=== PATIENT | female | born 1960 | race Caucasian/White ===

== ENCOUNTER 2022-10-03 11:33 | Outpatient (CLI) | payer OTHER, SELFPAY ==
--- OUTSIDE RECORDS SUMMARY | 2022-10-03 11:41 | XMS_ITS | Continuity of Care Document ---
Author Name [facility] Care Team Providers Care Side Guider Name Role Phone [facility] Unavailable Unavailable Allergies, Adverse Reactions, Alerts Substance Category Reaction Severity Reaction type Status Date Reported Comments Source thimerosal topical Drug Allergy Active 3 [facility] Family Medicine 1,[facility] Medicine 6 traMADol Drug Allergy Active 3 [facility] Family Medicine 1,[facility] Family Medicine 6
== END 2022-10-03 11:34 | disposition home or self-care (01) ==
PROVIDERS: PCP Physician Assistant Medical; Visit Provider Family Medicine
DX: Z00.00 Encounter for general adult medical examination without abnormal findings (principal); E03.9 Hypothyroidism, unspecified; I10 Essential (primary) hypertension; Z13.6 Encounter for screening for cardiovascular disorders; Z11.59 Encounter for screening for other viral diseases
CPT/HCPCS: 80053; 80061; 84443; 86803

== ENCOUNTER 2023-04-05 09:58 | Outpatient (CLI) | payer OTHER, SELFPAY ==
--- OUTSIDE RECORDS SUMMARY | 2023-04-05 10:02 | XMS_ITS | Continuity of Care Document ---
Author Name [facility] Care Team Providers Care Shipping Lead Name Role Phone [facility] Unavailable Unavailable Allergies, Adverse Reactions, Alerts Substance Category Reaction Severity Reaction type Status Date Reported Comments Source thimerosal topical Drug Allergy Active 3 [facility] Family Medicine 1,[facility]patient [facility] Medicine 6 traMADol Drug Allergy Active 3 [facility] Family Medicine 1,[facility]patient [facility] Family Medicine 6
--- NOTE | 2023-04-05 10:15 | CRLHL7_ITS ---
For Patients: As a result of the Century Cures Act, medical imaging exams and procedure reports are released immediately into your electronic medical record. You may view this report before your referring provider. If you have questions, please contact your health care provider. BILATERAL SCREENING MAMMOGRAM WITH COMPUTER-AIDED DETECTION TECHNIQUE: CC and MLO views were obtained. These mammographic images have been obtained using full-field digital technique. These mammographic images were interpreted with the benefit of computer-aided detection. COMPARISON FILM: 01/23/20, 08/02/18, 06/30/17. FINDINGS: There are scattered areas of fibroglandular density IMPRESSION: There is no radiographic evidence for malignancy. ASSESSMENT: BI-RADS Category 1: Negative RECOMMENDATION: Routine screening mammogram in 1 year. A lay language report of this examination will be provided to the patient. Robert Mujica M.D. Diagnostic Radiologist [email or web address] KUMAR/Dictated by: Robert Mujica MD @ 04/05/2023 11:21:00 AM (Electronically Signed)
== END 2023-04-05 09:59 | disposition home or self-care (01) ==
LOC: MAMMO 10:00
PROVIDERS: PCP Family Medicine; Visit Provider Family Medicine
DX: Z12.31 Encounter for screening mammogram for malignant neoplasm of breast (principal)
CPT/HCPCS: 77067

== ENCOUNTER 2023-08-25 12:06 | Outpatient (CLI) | payer MEDICARE, SELFPAY | END 2023-08-25 12:07 | disposition home or self-care (01) | PROVIDERS: PCP Family Medicine; Visit Provider Family Medicine | DX: E78.2 Mixed hyperlipidemia (principal); E03.9 Hypothyroidism, unspecified; I10 Essential (primary) hypertension | CPT/HCPCS: 80053; 80061; 82043; 82570; 84443 ==

== ENCOUNTER 2023-09-27 13:45 | Outpatient (CLI) | payer MEDICARE, SELFPAY ==
--- NOTE | 2023-09-27 14:00 | US_ITS ---
Patient: JOAQUIN DOMINGUEZ Facility:?[facility] Patient ID:?[id number] Site Patient ID:?[id number]. Site :?[id number] Study:?US-Abdomen Aorta-09/27/2023 3:24:43 PM Ordering Physician:Jaylin Jennings Final Report: ULTRASOUND ABDOMINAL AORTA INDICATION: Screening, past smoker. TECHNIQUE: Grayscale and color Doppler ultrasound examination of the abdominal aorta and common iliac arteries was performed. COMPARISON: None available. FINDINGS: (AP, width cm) Proximal AO: 1.91 x 1.8 cm. Mid AO: 2.1 x 1.9 cm. Distal AO: 1.6 x 1.5 cm. Right NATE: 0.8 x 0.9 cm. Left NATE: 1.0 x 0.9 cm. IMPRESSION: No sonographic evidence for abdominal aortic aneurysm. River Richardson M.D. Interventional Radiology/Diagnostic Radiology (IR/DR) [email or web address] CATHY/seema D& Transcribed: 9:54 p.m. KUMAR/Dictated by: River Richardson MD @ 09/27/2023 9:04:00 PM Signed by:?River Richardson MD @09/28/2023 7:57:46 AM (Electronic Signature)
--- NOTE | 2023-09-27 15:00 | XR_ITS ---
Patient: JOAQUIN DOMINGUEZ Facility:?[facility] Patient ID:?[id number] Site Patient ID:?[id number]. Site :?[id number] Study:?DEXA-Bone Density DEXA - SPINE/HIPS-09/27/2023 2:44:25 PM Ordering Physician:JOSH Final Report: DXA BONE MINERAL DENSITY STUDY Reason for exam: Osteopenia. Current height (in): 63.5. Weight (lb): 140. Menopause age: 53. Ethnicity: White. 1. Have you had a previous hip or vertebral fracture? No. 2. Have you had any fractures during your adult life which did not result from significant trauma (e.g., auto accident)? No. 3. Did either of your parents have a hip fracture? No. 4. Do you smoke? No. 5. Have you ever taken Glucocorticoids? No. 6. Do you have rheumatoid arthritis? No. 7. Do you have secondary osteoporosis? No. 8. Do you drink 3 or more alcoholic drinks per day? No. 9. Are you being treated for osteoporosis? No. 10. Have you ever taken any of the following medications: Actonel, Evista, Fosamax, Miacalcin, Reclast, Boniva, Forteo, HRT (i.e. estrogen/hormone therapy), Protelos, Prolia, Vitamin D, Calcium, other ? please specify. ANSWER: Yes, HRT (i.e. estrogen/hormone therapy), Vitamin D, and Calcium. 11. Do you have any of the following medical conditions: Anorexia or bulimia, asthma or emphysema, end stage renal disease, hyperparathyroidism, any seizure disorders, cancer, inflammatory bowel diseases, hysterectomy, other ? please specify. ANSWER: Yes, Cancer and hysterectomy. 12. What was your maximum height (inches)? 64. 13. Do you perform weight bearing exercise regularly? No. 14. Do you regularly consume dairy products? No. 15. Do you drink caffeinated beverages? Yes. 16. At what age did your period start? 10. 17. Are you premenopausal? No. 18. How many full term pregnancies have you had? 1. 19. Have you ever missed your period for more than 6 months in a row (not including or menopause)? Not provided. TECHNIQUE: Bone mineral density study was performed using the [employer]. FINDINGS: The results of the study expressed as bone mineral density (BMD) are as follows: Lumbar spine L1 to L4: BMD: 0.900 g/cm2. T-score: -1.3. Z-score: 0.4. Neck Left: BMD: 0.728 g/cm2. T-score: -1.1 . Z-score: 0.4. Right: BMD: 0.616 g/cm2. T-score: -2.1. Z-score: -0.6. Total Left: BMD: 0.913 g/cm2. T-score: -0.2 . Z-score: 1.0. Right: BMD: 0.834 g/cm2. T-score: -0.9 . Z-score: 0.3. IMPRESSION: Osteopenia. *Comparison exams done prior to 12/2019 were performed on different unit, [employer]. COMPARISON: Compared with scan of 08/07/2019, the bone mineral density has decreased by 7.4 percent at the spine and increased by 3.7 percent at the hip. FRAX 10-year Fracture Risk Major Osteoporotic Fracture: 11 percent Hip Fracture: 1.7 percent Reported Risk Factors: [place] () Neck BMD=0.616, BMI=24.4 Susi Harrison M.D. Body/Interventional Radiologist [email or web address] RADHA/alysha D& Transcribed: 7:05 p.m. SP/Dictated by: Susi Harrison MD @ 09/28/2023 10:30:00 AM SP/Dictated by: Susi Harrison MD @ 09/28/2023 10:30:00 AM Signed by:?Susi Harrison MD @09/29/2023 10:10:52 AM (Electronic Signature)
== END 2023-09-27 13:46 | disposition home or self-care (01) ==
LOC: US 13:45
PROVIDERS: PCP Family Medicine; Visit Provider Family Medicine
DX: Z13.6 Encounter for screening for cardiovascular disorders (principal); I10 Essential (primary) hypertension; Z87.891 Personal history of nicotine dependence; Z13.820 Encounter for screening for osteoporosis; M85.88 Other specified disorders of bone density and structure, other site
CPT/HCPCS: 76706; 77080

== ENCOUNTER 2024-04-08 10:02 | Outpatient (CLI) | payer MEDICARE, SELFPAY ==
--- OUTSIDE RECORDS SUMMARY | 2024-04-08 10:04 | XMS_ITS | Clinical Summary ---
Author Organization [facility] [employer] [facility] Address [place], [place] [address] Care Team Providers Care Appeals Writer Name Role Phone Roya Kim PA-C Primary Care Provider +1- [phone] Social History Tobacco Use Types Packs/Day Years Used Date Smoking Tobacco: Never Assessed Sex and Gender Information Value Date Recorded Sex Assigned at Not on file Gender Identity Not on file Sexual Orientation Not on file Plan of Treatment Not on file Care Teams Appeals Writer Relationship Specialty Start Date End Date Julio Roya Ben, MEGAN PCP - General Physician Center Receptionist 12/11/13
--- NOTE | 2024-04-08 10:15 | CRLHL7_ITS ---
For Patients: As a result of the Century Cures Act, medical imaging exams and procedure reports are released immediately into your electronic medical record. You may view this report before your referring provider. If you have questions, please contact your health care provider. BILATERAL SCREENING MAMMOGRAM WITH COMPUTER-AIDED DETECTION AND TOMOSYNTHESIS TECHNIQUE: CC and MLO views were obtained. These mammographic images have been obtained using full-field digital technique. These mammographic images were interpreted with the benefit of computer-aided detection. Breast tomosynthesis was used in this interpretation. COMPARISON FILM: 04/05/23, 01/23/20, 08/02/18. FINDINGS: There are scattered areas of fibroglandular density. IMPRESSION: There is no radiographic evidence for malignancy. ASSESSMENT: BI-RADS Category 1: Negative RECOMMENDATION: Routine screening mammogram in 1 year. A lay language report of this examination will be provided to the patient. ROBERT GARCES M.D. Diagnostic Radiologist [email or web address] Transcribed: 12:[address]/Dictated by: Robert Garces MD @ 04/08/2024 11:22:00 AM (Electronically Signed)
== END 2024-04-08 10:03 | disposition home or self-care (01) ==
LOC: MAMMO 10:03
PROVIDERS: PCP Family Medicine; Visit Provider Family Medicine
DX: Z12.31 Encounter for screening mammogram for malignant neoplasm of breast (principal)
CPT/HCPCS: 77063; 77067

== ENCOUNTER 2024-05-06 01:00 | Emergency (ER) | payer MEDICARE, SELFPAY ==
[2024-05-06] VITALS (16 sets, daily range): BP systolic 122–184; BP diastolic 69–94; PULSE 60–73; RESP 16; TEMP 36.7; O2SAT 96–100; BMI 23.9
--- NOTE | 2024-05-06 01:21 | ED.GENADULT ---
HPI - General Adult General Chief complaint: Unspecified Complaint, Adult Stated complaint: difficulty remembering Time Seen by Provider: 05/06/24 01:02 History of Present Illness HPI narrative: went to bed at 1030 and had evening activities with . states at 2315 she sat on end of bed and has no memory of the last few hours. no other deficits noted on triage. pt states hx of this one time before and was told TIA. denies CP or SOB. 63-year-old woman presenting to the emergency department with abrupt onset of confusion. She had Monday evening activities with her and they were preparing for bed when she was just saying how she was confused. Information is obtained mostly from . Walking about the house apparently noted things to be unfamiliar. Items on the table that had been present for days or weeks were also a not remembered. Dot having any loss of sensation or headache or weakness. She was feeling well prior to this event. Apparently had a similar episode in 2018 or 2019 and this was thought to be a TIA. Further questioning later reveals a no imaging was done at that time. Does not take any anticoagulation/aspirin. Underlying history of hypertension and hypothyroid. Related Data Home Medications ?Medication ?Instructions ?Recorded ?Confirmed estriol cream vaginal .2 x week PRN 12/04/23 Previous Rx's ?Medication ?Instructions ?Recorded cyclobenzaprine 5 mg tablet 5 - 10 mg (1 - 2 x 5 mg) PO TID 10/03/22 PRN muscle spasm #30 tabs conjugated estrogens 0.625 mg/gram 1 applic vaginal 2XW dyspareunia 08/25/23 vaginal cream (Premarin) #30 grams fluticasone propionate 50 1 spray intranasal QDAY PRN 08/25/23 mcg/actuation nasal allergy symptoms #16 grams spray,suspension (Allergy Relief (fluticasone)) hydrochlorothiazide 12.5 mg tablet 12.5 mg PO DAILY #90 tabs 08/25/23 levothyroxine 50 mcg tablet 50 mcg PO QDAY #90 tabs 08/25/23 spironolactone 25 mg tablet 25 mg PO DAILY #90 tabs 08/25/23 triamcinolone acetonide 0.1 % 1 applic dental 3XD PRN mouth 08/25/23 dental paste irritation #5 grams simvastatin 20 mg tablet 20 mg PO QHS #90 tabs 03/11/24 Allergies Allergy/AdvReac Type Severity Reaction Status Date / Time thimerosal Allergy Intermediate Swelling Verified 09/21/23 12:23 of the Eye tramadol Allergy Mild Nausea Verified 09/21/23 12:23 Review of Systems Status of ROS: Reports: 6 or more systems reviewed and unremarkable except as noted in History and below [facility] Medical History BCC (basal cell carcinoma of skin) ?C44.91 - Basal cell carcinoma of skin, unspecified (ICD-10) Non-healing skin lesion ?L98.9 - Disorder of the skin and subcutaneous tissue, unspecified (ICD-10) Surgical History Hx of LASIK ?Z98.890 - Other specified postprocedural states (ICD-10) History of repair of right hip joint ?Z98.890 - Other specified postprocedural states (ICD-10) History of bunionectomy ?Z98.890 - Other specified postprocedural states (ICD-10) History of hysterectomy ?Z90.710 - Acquired absence of both cervix and uterus (ICD-10) Family History Father Abdominal aortic aneurysm COPD (chronic obstructive pulmonary disease) Coronary artery disease Skin cancer Mother High blood pressure Thyroid disease Other Arthritis, rheumatoid Social History Narrative: Former smoker Does not use illicit drugs Social alcohol use Smoking Status: Former smoker How often do you have a drink containing alcohol: never AUDIT-C Alcohol total score: 0 Little interest or pleasure in doing things: not at all Feeling down, depressed, or hopeless: not at all Exam Narrative: Exam Narrative: Very pleasant. Mood and affect are congruent. NAD. Head is atraumatic. Cranial nerves 2-12 intact. She is speaking fluidly. No sensory or motor deficits apparent. Good strength throughout. Slight tremor in her hands which she says is associated with being cold at the moment. More accurate point point. Does demonstrate some difficulty with recall of these events this evening. Does pretty well with short-term recall here in testing but neglects 1 object requested to remember. Heart in regular rate and rhythm without murmur rub or gallop. Lungs are clear. Const: Vital Signs, click to edit/add: Vital Signs - 24 hr 05/06/24 01:09 05/06/24 01:22 05/06/24 01:41 Temperature 98.0 F Pulse Rate Pulse Rate [Pulse Oximeter] 71 Respiratory Rate 16 Blood Pressure 145/92 H 138/83 Blood Pressure [Ri ght Upper Arm] 184/94 H Pulse Oximetry 98 Oxygen Delivery Me thod Room Air 05/06/24 02:01 05/06/24 02:20 05/06/24 04:01 Temperature Pulse Rate 73 72 Pulse Rate [Pulse Oximeter] Respiratory Rate 16 Blood Pressure 147/89 H 127/77 Blood Pressure [Ri ght Upper Arm] Pulse Oximetry 100 96 Oxygen Delivery Me thod 05/06/24 04:02 05/06/24 06:03 05/06/24 06:06 Temperature Pulse Rate 64 63 60 Pulse Rate [Pulse Oximeter] Respiratory Rate 16 Blood Pressure 134/69 Blood Pressure [Ri ght Upper Arm] Pulse Oximetry 97 98 98 Oxygen Delivery Me thod 05/06/24 06:30 05/06/24 07:00 05/06/24 07:30 Temperature Pulse Rate 61 64 62 Pulse Rate [Pulse Oximeter] Respiratory Rate Blood Pressure Blood Pressure [Ri ght Upper Arm] Pulse Oximetry 97 96 96 Oxygen Delivery Me thod 05/06/24 07:46 Temperature Pulse Rate 61 Pulse Rate [Pulse Oximeter] Respiratory Rate Blood Pressure 122/73 Blood Pressure [Ri ght Upper Arm] Pulse Oximetry 99 Oxygen Delivery Me thod Documenting provider has reviewed patient's vital signs: yes Course Vital Signs Vital signs: Initial Vital Signs Temperature 98.0 F 05/06/24 01:09 Temperature Source Temporal Artery Scan 05/06/24 01:09 Pulse Rate 71 05/06/24 01:09 Respiratory Rate 16 05/06/24 01:09 Blood Pressure 184/94 H 05/06/24 01:09 Blood Pressure Mean 124 H 05/06/24 01:09 Blood Pressure Position Sitting 05/06/24 01:09 Pulse Oximetry 98 05/06/24 01:09 Oxygen Delivery Method Room Air 05/06/24 01:09 Vital Signs Temperature 98.0 F 05/06/24 01:09 Pulse Rate 71 05/06/24 01:09 Respiratory Rate 16 05/06/24 01:09 Blood Pressure 184/94 H 05/06/24 01:09 Pulse Oximetry 98 05/06/24 01:09 Oxygen Delivery Method Room Air 05/06/24 01:09 Temperature 98.0 F 05/06/24 01:09 Pulse Rate 61 05/06/24 07:46 Respiratory Rate 16 05/06/24 06:03 Blood Pressure 122/73 05/06/24 07:46 Pulse Oximetry 99 05/06/24 07:46 Oxygen Delivery Method Room Air 05/06/24 01:09 Medical Decision Making MDM Narrative Medical decision making narrative: I think would has occurred here is transient global amnesia. I suspect no further evaluation will be necessary. Some memory is already coming back a little bit. I discussed this diagnosis with them. Sounds like that may have been what she experienced in 2018 or 2019 as well. Has been quite concerned though about these events. I mentioned that I would discuss her case with neurology/stroke neuro on-call. Conversation with Stroke Neuro -- admittedly could defer any evaluation but would recommend since no imaging was done last time that do something here today. Concern would be about insult to posterior circulation. Karma and her have concerns of potential contrast allergy so would prefer not to do CT/CTA. Other option would be an MRI of the brain but will then sleep here in the emergency department until slot available in the morning. Further treatment pending these results or any further developments overnight. Anticipate hand off at change of shift pending MRI results Medical Records Medical records reviewed: Yes I reviewed the patient's medical records Discharge Plan Discharge Clinical Impression: Transient global amnesia Additional Instructions: I would anticipate your recall continuing to improve. No further recommendations at this time. Pleasure to meet you. Prescriptions: No Action cyclobenzaprine 5 mg tablet 5 - 10 mg PO TID PRN (Reason: muscle spasm) Qty: 30 3RF Premarin 0.625 mg/gram cream 1 applic vaginal 2XW Qty: 30 12RF fluticasone propionate [Allergy Relief (fluticasone)] 50 mcg/actuation spray,suspension 1 spray intranasal QDAY PRN (Reason: allergy symptoms) Qty: 16 12RF Rx Instructions: administer into each nostril hydrochlorothiazide 12.5 mg tablet 12.5 mg PO DAILY Qty: 90 3RF levothyroxine 50 mcg tablet 50 mcg PO QDAY Qty: 90 3RF spironolactone 25 mg tablet 25 mg PO DAILY Qty: 90 3RF triamcinolone acetonide 0.1 % paste 1 applic dental 3XD PRN (Reason: mouth irritation) Qty: 5 3RF estriol cream cream vaginal .2 x week PRN Rx Instructions: 1mg/gm - apply one gram vaginally every night for two weeks, then use twice weekly as needed thereafter simvastatin 20 mg tablet 20 mg PO QHS Qty: 90 1RF Follow Up/Referrals: Jaylin Herring MD [Primary Care Provider] -
--- OUTSIDE RECORDS SUMMARY | 2024-05-06 01:58 | XMS_ITS | Clinical Summary ---
Author Organization [facility] [employer] [facility] & [facility] Address [place], [place] [address] Care Team Providers Care Corduroy Cutting Supervisor Name Role Phone Roya Kim PA-C Primary Care Provider +1- [phone] Social History Tobacco Use Types Packs/Day Years Used Date Smoking Tobacco: Never Assessed Sex and Gender Information Value Date Recorded Sex Assigned at Not on file Gender Identity Not on file Sexual Orientation Not on file Plan of Treatment Not on file Care Teams Corduroy Cutting Supervisor Relationship Specialty Start Date End Date Julio October Ben, MEGAN PCP - General Physician Ham Sawyer 12/11/13
--- NOTE | 2024-05-06 07:00 | CRLHL7_ITS ---
For Patients: As a result of the Century Cures Act, medical imaging exams and procedure reports are released immediately into your electronic medical record. You may view this report before your referring provider. If you have questions, please contact your health care provider. Indication: Difficulty remembering last night from 11 p.m. through 11:30 p.m. Technique: Multiplanar, multisequence MRI of the brain obtained without contrast. Comparison: MRI brain 11/06/2017 Findings: The ventricles and cortical sulci are mildly prominent, compatible with generalized cerebral volume loss. No midline shift or mass effect. No acute intracranial hemorrhage or abnormal extra-axial fluid collection. No evidence of acute/subacute ischemia. Scattered FLAIR hyperintense foci throughout the supratentorial white matter typical of mild chronic microangiopathy. Solitary chronic microhemorrhage in the left parietal white matter. Midline structures are unremarkable. The major expected intracranial flow voids are visualized. Included bone marrow signal is unremarkable. No suspicious findings in the regional soft tissues. Minor mucosal thickening along the inferior maxillary sinuses. No mastoid effusion. Unremarkable orbits. Impression: 1. No evidence of acute intracranial abnormality. 2. Mild generalized cerebral volume loss and mild chronic microangiopathy changes similar to 2018. Dictated by Elle Montgomery MD @ 05/06/2024 9:03:43 AM (Electronically Signed)
--- NOTE | 2024-05-06 09:18 | ED.NURSE ---
Pt left without discharge instructions
== END 2024-05-06 09:20 | disposition home or self-care (01) ==
PROVIDERS: Emergency Provider Family Medicine; PCP Family Medicine
DX: G45.4 Transient global amnesia (principal)
CPT/HCPCS: 70551; 99284

== ENCOUNTER 2024-09-12 09:24 | Outpatient (CLI) | payer MEDICARE, SELFPAY | END 2024-09-12 09:25 | disposition home or self-care (01) | PROVIDERS: PCP Family Medicine; Visit Provider Family Medicine | DX: E03.9 Hypothyroidism, unspecified (principal); I10 Essential (primary) hypertension; E78.5 Hyperlipidemia, unspecified | CPT/HCPCS: 80053; 80061; 82043; 82570; 84439; 84443 ==

== ENCOUNTER 2025-04-09 14:46 | Outpatient (CLI) | payer MEDICARE, SELFPAY ==
--- NOTE | 2025-04-09 15:00 | CRLHL7_ITS ---
For Patients: As a result of the Century Cures Act, medical imaging exams and procedure reports are released immediately into your electronic medical record. You may view this report before your referring provider. If you have questions, please contact your health care provider. INDICATION: BILATERAL SCREENING MAMMOGRAM, ASYMPTOMATIC 64 Y/O FEMALE COMPARISON: 04/08/2024, 04/05/2023, 01/23/2020 TECHNIQUE: Digital mammogram in CC and MLO projections including computer-aided detection (CAD) and tomosynthesis. BREAST COMPOSITION: There are scattered areas of fibroglandular density. FINDINGS: No suspicious findings. ASSESSMENT: BI-RADS 1 Negative RECOMMENDATION: Annual screening mammogram. A lay language report of this examination will be provided to the patient. Dictated by: Robert Mujica MD @ 04/10/2025 09:22:15 (Electronically Signed)
== END 2025-04-09 14:47 | disposition home or self-care (01) ==
LOC: MAMMO 14:46
PROVIDERS: PCP Family Medicine; Visit Provider Family Medicine
DX: Z12.31 Encounter for screening mammogram for malignant neoplasm of breast (principal)
CPT/HCPCS: 77063; 77067